=== PATIENT | male | born 1970 | race Caucasian/White ===

== ENCOUNTER → 2019-05-07 | Outpatient (CLI) | payer BC, OTHER ==
[~2019-05-07] MED LIST: CEFU500T5 PO
== END ==
LOC: CARD 14:04
PROVIDERS: ATTEND Internal Medicine Cardiovascular Disease
DX: I49.5 Sick sinus syndrome (principal); I44.2 Atrioventricular block, complete; R55 Syncope and collapse
CPT/HCPCS: 93306

== ENCOUNTER → 2019-09-14 | Outpatient (CLI) | payer BC ==
[~2019-09-14] MED LIST changes: +CATHETER FLUSH 10 ML SYR IV PRN
--- NOTE | 2019-09-14 18:59 | Diagnostic Imaging Report ---
EXAMINATION: Hepatobiliary scan with ejection fraction. INDICATION: Nausea and diarrhea. COMPARISON: There are no prior studies available for comparison. TECHNIQUE: This exam is performed following administration of 5.49 mCi of 99m-technetium Choletec. After 60 minutes, one can of Ensure was also administered for the ejection fraction calculation. FINDINGS: There is uptake of the radiotracer by the gallbladder before 30 minutes. This would weigh against the diagnosis of acute cholecystitis. There is also extension of the radiotracer into the small bowel indicating that the common bile duct is not obstructed. The ejection fraction is 31.9% (normal greater than 35%). The reason for the slightly diminished ejection fraction is not certain. The possibility of biliary dyskinesia should be considered. IMPRESSION: 1. There is no evidence for acute cholecystitis or for obstruction of the common bile; however, the ejection fraction is below normal limits. Clinical follow-up is recommended. Dictated by: Dictated on workstation # [id number]
== END ==
LOC: CARD 11:38
PROVIDERS: ATTEND Surgery
DX: R19.7 Diarrhea, unspecified (principal); R11.0 Nausea
CPT/HCPCS: 78227; A9537